=== PATIENT | male | born 1955 | race Two or more races ===

== ENCOUNTER 2021-02-08 06:27 | Day surgery (SDC) | payer MEDICARE, OTHER ==
[~2021-02-08] VITALS: Ht 210.8 cm; Wt 94.8 kg
[~2021-02-08 06:27] MED LIST: CARAFATE1 G PO; DEPAKOTE250 MG PO; NORVASC5 MG PO; PAROXETINE HCL10 MG PO; PROTONIX40 MG PO; TOPAMAX50 MG PO; TYLENOL W/CODEI1 TAB PO; ZANAFLEX4 MG PO
[2021-02-08 06:55] LABS: BASOPHILS 0.2 % (0-2); EOSINOPHILS 1.1 % (0-7); HEMATOCRIT 45.1 % (42.0-54.0); HEMOGLOBIN 15.7 g/dL (13.5-17.5); IMMATURE GRANULOCYTES 0.2 % (0-5); MCH 31.6 pg (26.0-34.0); MCHC 34.8 g/dL (31.0-37.0); MCV 90.7 fL (80.0-100.0); MEAN PLATELET VOLUME 10.2 fL (7.4-10.4); MONOCYTES 8.7 % (2-11); NEUTROPHIL ABS# 2.95 10x3/uL (1.78-5.38); NEUTROPHILS 63.8 % (40-80); PLATELET COUNT 150 10x3/uL (130-400); RBC 4.97 10x6/uL (4.20-6.10); RDW 12.9 % (11.5-14.5); WBC 4.6 10x3/uL (4.8-10.8)
[2021-02-08 07:02] LABS: ANION GAP 9.7 mmol/L (8-16); CALCIUM 9.4 mg/dL (8.5-10.1); CARBON DIOXIDE 32.1 mmol/L (21.0-32.0); CREATININE - SERUM 1.2 mg/dL (0.6-1.3); POTASSIUM - SERUM 3.8 mmol/L (3.5-5.1)
[2021-02-08 08:16] VITALS: BP 146/77; Ht 210.8 cm; Wt 94.8 kg
[2021-02-08] MEDS ORDERED: HYDROCODON-ACE1 EA10 PO (11:15)
--- NOTE | 2021-02-08 13:57 | NUR ---
1350 INSTRUCTIONS GIVEN, PT SLIGHTLY GAMBELL, DAUGHTER IN ROOM. DRESSING X4 CDI. VS STABLE. IV RIGHT AC POSITIONAL. DRINKING WELL
--- NOTE | 2021-02-08 14:18 | OP ---
PATIENT NAME: VIDHYA ORTIZ MEDICAL RECORD: [id number] :53 LOCATION:D.OPS ADMISSION DATE: SURGEON: ARNULFO NICE MD DATE OF OPERATION: 02/08/2021 PREOPERATIVE DIAGNOSES: 1. Biliary dyskinesia. 2. Hypertension. 3. Bradycardia. 4. Gastroesophageal reflux disease. 5. Obstructive sleep apnea. POSTOPERATIVE DIAGNOSES: 1. Biliary dyskinesia. 2. Hypertension. 3. Bradycardia. 4. Gastroesophageal reflux disease. 5. Obstructive sleep apnea. PROCEDURE: Laparoscopic cholecystectomy. SURGEON: Arnulfo Nice MD REPORT OF PROCEDURE: The patient's abdomen was prepped and draped in sterile fashion. A cutdown was made on the superior aspect of the umbilicus. 0 Vicryls were placed in the fascia bilaterally and the fascia was incised with a 15 blade, I then bluntly entered the peritoneal cavity and placed a 12-mm Krista port. Under direct visualization, a 5-mm trocar was placed in the epigastrium and 2 more 5-mm trocars were placed in the right subcostal region. The gallbladder was grasped and elevated. There are no signs of any inflammatory changes. The cystic artery and cystic duct were dissected free and these were clipped proximally and distally and ligated in standard fashion. The gallbladder was taken off the liver bed using electrocautery and placed into the right upper quadrant. Any bleeding from the liver bed was then treated with electrocautery. We irrigated out the right upper quadrant and assured there were no signs of any bleeding or bile leakage. At this point, the ports and insufflation were then removed and the gallbladder was taken out through the umbilicus. The umbilical fascia was closed with interrupted 0 Vicryls times 3. The wounds were irrigated out with normal saline and infused with 10 mL of 0.25% Marcaine with epinephrine. The skin incisions were all closed with subcutaneous 5-0 Monocryl and dressed appropriately. COMPLICATIONS: None. CONDITION: Stable. ANESTHESIA: General endotracheal and local. BLOOD LOSS: Minimal. TRANSINT:[id number] Voice Confirmation ID: [id number] DOCUMENT ID: [id number] OPERATIVE REPORT [id number] VIDHYA ORTIZ ARNULFO NICE MD at 1411 CC: LINDA ROSA MD [id number] DICTATION DATE: 02/08/21 1123 COMPTOMETRIST: 02/08/21 1152 [facility] [address] [place], [facility]
--- NOTE | 2021-02-08 15:17 | NUR ---
1515 ASSISTED TO BATHROOM TO URINATE. MILD DIZZINESS, INSTRUCTIONS GIVEN PT SITTING ON TOILET TO URINATE
--- NOTE | 2021-02-08 15:38 | NUR ---
1530 PT UNABLE TO URINATE AND GIVEN A SPRITE AND LARGE WATER.
--- NOTE | 2021-02-08 17:00 | NUR ---
1545 ATTEMPTED TO URIANTE AND WAS ABLE TO VOID. IV REMOVED AND INSTRUCTIONS GIVEN.
== END 2021-02-08 16:20 | disposition home or self-care (01) ==
LOC: D.OPS 06:27
PROVIDERS: ATTEND Surgery
DX: K82.8 Other specified diseases of gallbladder (principal); I10 Essential (primary) hypertension; R00.1 Bradycardia, unspecified; K21.9 Gastro-esophageal reflux disease without esophagitis; G47.33 Obstructive sleep apnea (adult) (pediatric)